=== PATIENT | female | born 1955 | race Caucasian/White ===

== ENCOUNTER 2017-10-04 07:59 | Day surgery (SDC) | payer OTHER ==
[~2017-10-04 07:59] MED LIST: ACETAMINOPHEN 1000 MG/100 ML IVPB; CEFAZOLIN 1 GM INJ; CEFAZOLIN 2 GM/50 ML (PMX) 50 ML IVPB; SOD CHLORIDE 0.9% 1,000 ML IV
[2017-10-04] MEDS: SOD CHLORIDE 0.9% 1,000 ML IV (09:06)
[2017-10-04] MEDS ORDERED: CEFAZOLIN 2 GM/50 ML (PMX) 50 ML IVPB (09:30)
[2017-10-04] MEDS ORDERED: LIDOCAINE 2% (MDV) 20 ML INJ (10:48)
[2017-10-04] MEDS ORDERED: BUPIVACAINE 0.5% (SDV) 30 ML INJ (10:48)
[2017-10-04] MEDS ORDERED: FENTAnyl 50 MCG/ML VIAL (11:02)
[2017-10-04] MEDS ORDERED: MIDAZOLAM 1 MG/ML 2 ML INJ (11:02)
[2017-10-04] MEDS ORDERED: KETOROLAC 30 MG INJ (11:03)
[2017-10-04] MEDS ORDERED: ONDANSETRON 4 MG INJ (11:03)
[2017-10-04] MEDS: LIDOCAINE 2% (MDV) 20 ML INJ INJ (11:24)
[2017-10-04] MEDS: BUPIVACAINE 0.5% (MPF) 30 ML INJ INJ (11:24)
[2017-10-04] MEDS ORDERED: HYDROCODONE/APAP (5/325) TAB PO (11:30)
== END 2017-10-04 12:58 | disposition home or self-care (01) ==
LOC: SDS 07:59
DX: D17.1 Benign lipomatous neoplasm of skin and subcutaneous tissue of trunk (principal)
CPT/HCPCS: 14001; 88307